=== PATIENT | male | born 1945 | race African-American/Black ===

== ENCOUNTER 2022-03-06 11:36 | Observation (INO) ==
[2022-03-06 12:08] LABS: Basophils % 0.5 % (0.0-0.8); Eosinophils # 0.2 10*3/uL (0.0-0.87); Eosinophils % 5.6 % (0.00-10.9); Hematocrit 37.5 VOL% (42.0-52.0); Hemoglobin 11.7 GM/DL (14.0-18.0); Immature Granulocytes % 0.2 %; Immature Granulocytes Absolute 0.01 #; Lymphocytes # 0.6 10*3/uL (1.4-4.0); Lymphocytes % 13.4 % (21.2-54.2); Mean Corpuscular HGB Conc 31.2 GM/DL (32-36); Mean Corpuscular Volume 89.1 FL (87-102); Mean Platelet Volume 10.7 FL (9.6-12.0); Monocytes # 0.4 10*3/uL (0.11-0.8); Monocytes % 8.5 % (1.7-12.7); Neutrophils % 71.8 % (38.7-73.9); Platelet Count 141 T/CUMM (130-400); Red Blood Count 4.21 MC/CUMM (3.8-5.5); Red Cell Distribution Width 13.4 % (9.3-17.3); White Blood Count 4.1 T/CUMM (4-12)
[2022-03-06 12:35] LABS: Albumin 3.4 G/DL (3.4-5.0); Bilirubin,Total 0.4 MG/DL (0.20-1.00); Osmolality,Calculated 299.8 MOS/KG (273-304); Potassium 4.5 MMOL/L (3.5-5.1); Total Protein 6.6 G/DL (6.4-8.2)
[2022-03-06] MEDS ORDERED: ASPIRIN 325 MG TABLET PO STA (12:46)
[2022-03-06 13:02] LABS: PT Patient Result 11.2 SECS (10.1-12.1)
[2022-03-06] MEDS ORDERED: FUROSEMIDE 40 MG/4 ML VIAL IV STA (13:15)
[2022-03-06] MEDS ORDERED: DOCUSATE SODIUM 100 MG CAPSULE PO PRN (13:50)
[2022-03-06] MEDS ORDERED: ACETAMINOPHEN 325 MG TABLET PO PRN (13:50)
[2022-03-06] MEDS ORDERED: DEXTROSE 10% 250 ML BAG IV PRN (13:50)
[2022-03-06] MEDS ORDERED: GLUCAGON 1 MG VIAL IM PRN (13:50)
[2022-03-06] MEDS ORDERED: ONDANSETRON 4 MG/2 ML VIAL IV PRN (13:50)
[2022-03-06 14:13] LABS: Risk Ratio 3.24; VLDL Cholesterol 31.8 MG/DL
[2022-03-06] MEDS ORDERED: FUROSEMIDE 40 MG/4 ML VIAL IV SCH (14:30)
[2022-03-06] MEDS ORDERED: hydrALAZINE 20 MG/1 ML VIAL IV PRN (14:33)
[2022-03-06] MEDS: INSULIN LISPRO 100 UNIT/ML SUBCUT SCH ×2 (17:31→20:54)
[2022-03-06] MEDS ORDERED: INFLUENZA VIRUS VACCINE 0.5 ML SYRINGE IM ONE (18:02)
[2022-03-06] MEDS: FUROSEMIDE 40 MG/4 ML VIAL IV SCH (18:18)
[2022-03-06 18:36] LABS: Bilirubin,Urine Negative (Negative); Blood, Urine Trace mg/dL (Negative); Glucose,Urine (UA) Negative (Negative); Ketones,Urine Negative (Negative); Nitrite,Urine Negative (Negative); Protein,Urine Negative (Negative); Urine Appearance Clear (Clear); Urine Color Yellow (Yellow); Urine Specific Gravity 1.015 (1.001-1.035); Urine Urobilinogen 0.2 eU/dL (<2.0); Urine pH 6.5 (4.5-8.0)
[2022-03-06 18:41] LABS: RBC,Urine 4 /HPF (0-4); Squamous Epithelial Cell,Urine Occasional /HPF (0-10)
[2022-03-06] MEDS ORDERED: MELATONIN 3 MG TABLET PO PRN (19:45)
[2022-03-07 05:54] LABS: Basophils % 0.4 % (0.0-0.8); Eosinophils # 0.3 10*3/uL (0.0-0.87); Eosinophils % 5.2 % (0.00-10.9); Hematocrit 38.5 VOL% (42.0-52.0); Hemoglobin 12.3 GM/DL (14.0-18.0); Immature Granulocytes % 0.2 %; Immature Granulocytes Absolute 0.01 #; Lymphocytes # 0.9 10*3/uL (1.4-4.0); Lymphocytes % 18.9 % (21.2-54.2); Mean Corpuscular HGB Conc 31.9 GM/DL (32-36); Mean Corpuscular Volume 87.3 FL (87-102); Mean Platelet Volume 11.5 FL (9.6-12.0); Monocytes # 0.5 10*3/uL (0.11-0.8); Monocytes % 10.2 % (1.7-12.7); Neutrophils % 65.1 % (38.7-73.9); Platelet Count 128 T/CUMM (130-400); Red Blood Count 4.41 MC/CUMM (3.8-5.5); Red Cell Distribution Width 13.4 % (9.3-17.3)
[2022-03-07 06:17] LABS: Calcium 9.4 MG/DL (8.5-10.1); Potassium 4.3 MMOL/L (3.5-5.1)
[2022-03-07] MEDS: RIVAROXABAN 10 MG TABLET PO SCH (08:39)
[2022-03-07] MEDS: PANTOPRAZOLE 40 MG TABLET PO SCH (08:39)
[2022-03-07] MEDS: FUROSEMIDE 40 MG/4 ML VIAL IV SCH ×2 (08:40→18:14)
[2022-03-07] MEDS: INSULIN LISPRO 100 UNIT/ML SUBCUT SCH ×4 (08:42→21:00)
[2022-03-07] MEDS: DILTIAZEM CD 240 MG CAPSULE PO SCH (11:41)
[2022-03-07] MEDS: hydrALAZINE 25 MG TABLET PO SCH ×2 (15:44→21:00)
[2022-03-07] MEDS: ISOSORBIDE MONONITRATE 30 MG TABLET PO SCH (15:44)
[2022-03-08 06:47] LABS: Calcium 9.3 MG/DL (8.5-10.1); Osmolality,Calculated 296.3 MOS/KG (273-304); Potassium 4.3 MMOL/L (3.5-5.1)
[2022-03-08] MEDS: FUROSEMIDE 40 MG/4 ML VIAL IV SCH (08:14)
[2022-03-08] MEDS: DILTIAZEM CD 240 MG CAPSULE PO SCH (08:14)
[2022-03-08] MEDS: hydrALAZINE 25 MG TABLET PO SCH (08:14)
[2022-03-08] MEDS: RIVAROXABAN 10 MG TABLET PO SCH (08:14)
[2022-03-08] MEDS: PANTOPRAZOLE 40 MG TABLET PO SCH (08:14)
[2022-03-08] MEDS: ISOSORBIDE MONONITRATE 30 MG TABLET PO SCH (08:14)
[2022-03-08] MEDS: INSULIN LISPRO 100 UNIT/ML SUBCUT SCH ×2 (08:24→12:43)
[2022-03-08] MEDS ORDERED: ISOSORBIDE MONONITRATE 30 MG TABLET PO SCH (11:00)
[2022-03-08 12:26] VITALS: BP 112/68
== END 2022-03-08 14:35 | disposition home or self-care (01) ==
LOC: SUATTDRO → N.EDINP 11:36 → N.ED 11:36 → SUATTDRO 13:50 → N.2W 17:00
PROVIDERS: ADMIT Internal Medicine; ATTEND Emergency Medicine

== ENCOUNTER 2022-06-18 19:46 | Inpatient (IN) ==
[2022-06-18 20:32] LABS: Basophils % 0.7 % (0.0-0.8); Eosinophils # 0.2 10*3/uL (0.0-0.87); Eosinophils % 3.1 % (0.00-10.9); Hematocrit 37.2 VOL% (42.0-52.0); Hemoglobin 12.2 GM/DL (14.0-18.0); Immature Granulocytes % 0.7 %; Immature Granulocytes Absolute 0.04 #; Lymphocytes # 0.9 10*3/uL (1.4-4.0); Lymphocytes % 16.7 % (21.2-54.2); Mean Corpuscular HGB Conc 32.8 GM/DL (32-36); Mean Corpuscular Volume 85.9 FL (87-102); Mean Platelet Volume 10.4 FL (9.6-12.0); Monocytes # 0.4 10*3/uL (0.11-0.8); Monocytes % 7.2 % (1.7-12.7); Neutrophils % 71.6 % (38.7-73.9); Platelet Count 168 T/CUMM (130-400); Red Blood Count 4.33 MC/CUMM (3.8-5.5); Red Cell Distribution Width 12.6 % (9.3-17.3); White Blood Count 5.4 T/CUMM (4-12)
[2022-06-18 20:46] LABS: Calcium 8.9 MG/DL (8.5-10.1); Osmolality,Calculated 290.4 MOS/KG (273-304); Partial Thromboplastin Time 25.1 SECS (23.7-32.9); Potassium 4.5 MMOL/L (3.5-5.1)
[2022-06-18 21:43] LABS: Bacteria,Urine Occasional /HPF (Few); Hyaline Casts,Urine 8 /LPF (0-3); Mucus,Urine Occasional /LPF (Occasional); RBC,Urine 2 /HPF (0-4); Squamous Epithelial Cell,Urine Occasional /HPF (0-10)
[2022-06-18 21:44] LABS: Bilirubin,Urine Negative (Negative); Blood, Urine Negative (Negative); Glucose,Urine (UA) Negative (Negative); Ketones,Urine Negative (Negative); Nitrite,Urine Negative (Negative); Protein,Urine 100 mg/dL (Negative); Urine Appearance Clear (Clear); Urine Color Yellow (Yellow); Urine Urobilinogen 0.2 eU/dL (<2.0); Urine pH 5.5 (4.5-8.0)
[2022-06-18] MEDS ORDERED: HYDROmorphone 1 MG/1 ML SYRINGE IV PRN (22:09)
[2022-06-18] MEDS ORDERED: ONDANSETRON 4 MG/2 ML VIAL IV PRN (22:09)
[2022-06-19] MEDS ORDERED: traMADol 50 MG TABLET PO PRN (08:34)
[2022-06-19] MEDS ORDERED: FUROSEMIDE 40 MG TABLET PO SCH (09:00)
[2022-06-19] MEDS ORDERED: ISOSORBIDE MONONITRATE 30 MG TABLET PO SCH (09:00)
[2022-06-19] MEDS ORDERED: hydrALAZINE 25 MG TABLET PO SCH (09:00)
[2022-06-19] MEDS ORDERED: TAMSULOSIN 0.4 MG CAPSULE PO SCH (09:00)
[2022-06-19] MEDS ORDERED: RIVAROXABAN 10 MG TABLET PO SCH (09:00)
[2022-06-19] MEDS ORDERED: DILTIAZEM CD 240 MG CAPSULE PO SCH (09:00)
[2022-06-19] MEDS: DORZOLAMIDE/TIMOLOL OPH SOLN 10 ML BOTTLE LEFT EYE SCH ×2 (10:13→21:45)
[2022-06-19] MEDS: BRIMONIDINE 0.1% OPH SOLN 5 ML BOTTLE LEFT EYE SCH ×2 (10:14→21:45)
[2022-06-19] MEDS: PANTOPRAZOLE 40 MG TABLET PO SCH (10:14)
[2022-06-19] MEDS: ROSUVASTATIN 10 MG TABLET PO SCH (20:14)
[2022-06-19] MEDS: TAMSULOSIN 0.4 MG CAPSULE PO SCH (20:14)
[2022-06-20 05:17] LABS: Basophils % 0.5 % (0.0-0.8); Eosinophils # 0.2 10*3/uL (0.0-0.87); Hemoglobin 11.8 GM/DL (14.0-18.0); Immature Granulocytes % 0.2 %; Immature Granulocytes Absolute 0.01 #; Lymphocytes # 1.2 10*3/uL (1.4-4.0); Lymphocytes % 28.1 % (21.2-54.2); Mean Corpuscular HGB Conc 32.8 GM/DL (32-36); Mean Corpuscular Volume 86.1 FL (87-102); Mean Platelet Volume 10.7 FL (9.6-12.0); Monocytes # 0.4 10*3/uL (0.11-0.8); Monocytes % 10.4 % (1.7-12.7); Neutrophils % 55.8 % (38.7-73.9); Platelet Count 141 T/CUMM (130-400); Red Blood Count 4.18 MC/CUMM (3.8-5.5); Red Cell Distribution Width 12.5 % (9.3-17.3); White Blood Count 4.2 T/CUMM (4-12)
[2022-06-20 05:47] LABS: Albumin 2.9 G/DL (3.4-5.0); Bilirubin,Total 0.4 MG/DL (0.20-1.00); Osmolality,Calculated 289.1 MOS/KG (273-304); Potassium 4.2 MMOL/L (3.5-5.1); Total Protein 6.2 G/DL (6.4-8.2)
[2022-06-20] MEDS: TAMSULOSIN 0.4 MG CAPSULE PO SCH ×2 (08:20→20:40)
[2022-06-20] MEDS: ASPIRIN EC 81 MG TABLET PO SCH (08:20)
[2022-06-20] MEDS: PANTOPRAZOLE 40 MG TABLET PO SCH (08:20)
[2022-06-20] MEDS: METOPROLOL TARTRATE 25 MG TABLET PO SCH ×2 (08:21→20:39)
[2022-06-20] MEDS: BRIMONIDINE 0.1% OPH SOLN 5 ML BOTTLE LEFT EYE SCH ×2 (10:12→20:39)
[2022-06-20] MEDS: DORZOLAMIDE/TIMOLOL OPH SOLN 10 ML BOTTLE LEFT EYE SCH ×2 (10:12→20:39)
[2022-06-20] MEDS: ROSUVASTATIN 10 MG TABLET PO SCH (20:40)
[2022-06-21 06:20] LABS: Calcium 9.2 MG/DL (8.5-10.1); Osmolality,Calculated 290.1 MOS/KG (273-304); Potassium 4.4 MMOL/L (3.5-5.1)
[2022-06-21] MEDS: ASPIRIN EC 81 MG TABLET PO SCH (08:22)
[2022-06-21] MEDS: PANTOPRAZOLE 40 MG TABLET PO SCH (08:22)
[2022-06-21] MEDS: FINASTERIDE 5 MG TABLET PO SCH (08:22)
[2022-06-21] MEDS: GABAPENTIN 600 MG TABLET PO SCH ×2 (08:22→20:11)
[2022-06-21] MEDS: ALFUZOSIN 10 MG TABLET PO SCH (08:22)
[2022-06-21] MEDS: METOPROLOL TARTRATE 25 MG TABLET PO SCH ×2 (08:23→20:11)
[2022-06-21] MEDS: GLIMEPIRIDE 2 MG TABLET PO SCH (08:23)
[2022-06-21] MEDS: SERTRALINE 100 MG TABLET PO SCH (08:23)
[2022-06-21] MEDS: BRIMONIDINE 0.1% OPH SOLN 5 ML BOTTLE LEFT EYE SCH ×2 (08:25→20:12)
[2022-06-21] MEDS: DORZOLAMIDE/TIMOLOL OPH SOLN 10 ML BOTTLE LEFT EYE SCH ×2 (08:25→20:12)
[2022-06-21] MEDS: FLUDROCORTISONE 0.1 MG TABLET PO SCH (09:41)
[2022-06-21] MEDS ORDERED: PRAZOSIN 1 MG CAPSULE PO SCH ×2 (12:14→21:00)
[2022-06-21] MEDS ORDERED: PRAZOSIN 1 MG CAPSULE PO ONE (13:21)
[2022-06-21] MEDS ORDERED: ROSUVASTATIN 10 MG TABLET PO SCH (21:00)
[2022-06-22] MEDS ORDERED: CHOLECALCIFEROL 1,000 UNIT TABLET PO SCH (09:00)
[2022-06-22] MEDS: FLUDROCORTISONE 0.1 MG TABLET PO SCH (09:25)
[2022-06-22] MEDS: SERTRALINE 100 MG TABLET PO SCH (09:25)
[2022-06-22] MEDS: FINASTERIDE 5 MG TABLET PO SCH (09:25)
[2022-06-22] MEDS: ASPIRIN EC 81 MG TABLET PO SCH (09:25)
[2022-06-22] MEDS: GABAPENTIN 600 MG TABLET PO SCH (09:25)
[2022-06-22] MEDS: PANTOPRAZOLE 40 MG TABLET PO SCH (09:25)
[2022-06-22] MEDS: METOPROLOL TARTRATE 25 MG TABLET PO SCH (09:25)
[2022-06-22] MEDS: GLIMEPIRIDE 2 MG TABLET PO SCH (09:26)
[2022-06-22] MEDS: ALFUZOSIN 10 MG TABLET PO SCH (09:26)
[2022-06-22] MEDS: DORZOLAMIDE/TIMOLOL OPH SOLN 10 ML BOTTLE LEFT EYE SCH (09:28)
[2022-06-22] MEDS: BRIMONIDINE 0.1% OPH SOLN 5 ML BOTTLE LEFT EYE SCH (09:29)
[2022-06-22 12:19] VITALS: BP 132/76
== END 2022-06-22 12:15 | disposition home health service (06) | DRG 312 ==
LOC: EDBD → EDUNIT# → N.EDINP 19:46 → N.ED 19:46 → N.TELES 06-19 07:50
PROVIDERS: ADMIT Family Medicine; ATTEND Family Medicine

== ENCOUNTER 2022-07-22 13:53 | Inpatient (IN) ==
[2022-07-22 14:41] LABS: Basophils % 0.3 % (0.0-0.8); Eosinophils % 0.3 % (0.00-10.9); Hematocrit 32.5 VOL% (42.0-52.0); Hemoglobin 10.3 GM/DL (14.0-18.0); Immature Granulocytes % 0.6 %; Immature Granulocytes Absolute 0.04 #; Lymphocytes # 0.3 10*3/uL (1.4-4.0); Lymphocytes % 5.2 % (21.2-54.2); Mean Corpuscular HGB Conc 31.7 GM/DL (32-36); Mean Corpuscular Volume 87.8 FL (87-102); Mean Platelet Volume 10.6 FL (9.6-12.0); Monocytes # 0.4 10*3/uL (0.11-0.8); Monocytes % 5.5 % (1.7-12.7); Neutrophils % 88.1 % (38.7-73.9); Platelet Count 157 T/CUMM (130-400); Red Cell Distribution Width 13.8 % (9.3-17.3); White Blood Count 6.59 T/CUMM (4-12)
[2022-07-22 14:53] LABS: PT Patient Result 10.9 SECS (10.1-12.1); Partial Thromboplastin Time 30.8 SECS (23.7-32.9)
[2022-07-22 15:21] LABS: Albumin 3.1 G/DL (3.4-5.0); Bilirubin,Total 0.6 MG/DL (0.20-1.00); Calcium 8.4 MG/DL (8.5-10.1); Potassium 3.9 MMOL/L (3.5-5.1); Total Protein 6.1 G/DL (6.4-8.2)
[2022-07-22] MEDS ORDERED: FUROSEMIDE 40 MG/4 ML VIAL IV STA (16:02)
[2022-07-22] MEDS ORDERED: GLUCAGON 1 MG VIAL IM PRN (16:06)
[2022-07-22] MEDS ORDERED: ACETAMINOPHEN 325 MG TABLET PO PRN (16:06)
[2022-07-22] MEDS ORDERED: ONDANSETRON 4 MG/2 ML VIAL IV PRN (16:06)
[2022-07-22] MEDS ORDERED: MAGNESIUM SULF RIDER 4 GM/100 ML PREMIX IV PRN (16:10)
[2022-07-22] MEDS ORDERED: MAGNESIUM SULF RIDER 2 GM/50 ML PREMIX IV PRN (16:10)
[2022-07-22] MEDS ORDERED: NITROGLYCERIN SL 0.4 MG TABLET SL PRN (16:12)
[2022-07-22] MEDS ORDERED: DEXTROSE 10% 250 ML BAG IV PRN (16:12)
[2022-07-22] MEDS ORDERED: SODIUM CHLORIDE 0.45% 1,000 ML IV SCH (16:30)
[2022-07-22] MEDS: ENOXAPARIN 30 MG/0.3 ML SYRINGE SUBCUT SCH (18:35)
[2022-07-22] MEDS ORDERED: ENOXAPARIN 60 MG/0.6 ML SYRINGE SUBCUT ONE (20:13)
[2022-07-22] MEDS ORDERED: hydrALAZINE 25 MG TABLET PO ONE (20:14)
[2022-07-22] MEDS: METOPROLOL TARTRATE 25 MG TABLET PO SCH (20:36)
[2022-07-22] MEDS: ROSUVASTATIN 10 MG TABLET PO SCH (20:36)
[2022-07-22] MEDS: GABAPENTIN 600 MG TABLET PO SCH (20:36)
[2022-07-22] MEDS: PRAZOSIN 1 MG CAPSULE PO SCH (20:37)
[2022-07-22] MEDS: DOCUSATE SODIUM 100 MG CAPSULE PO SCH (20:37)
[2022-07-22] MEDS: DORZOLAMIDE/TIMOLOL OPH SOLN 10 ML BOTTLE LEFT EYE SCH (21:22)
[2022-07-22] MEDS: INSULIN REGULAR 100 UNIT/ML SUBCUT SCH (21:23)
[2022-07-22] MEDS: BRIMONIDINE 0.1% OPH SOLN 5 ML BOTTLE LEFT EYE SCH (21:23)
[2022-07-23 07:29] LABS: Calcium 8.4 MG/DL (8.5-10.1); Osmolality,Calculated 297.7 MOS/KG (273-304); Potassium 3.4 MMOL/L (3.5-5.1)
[2022-07-23] MEDS: INSULIN REGULAR 100 UNIT/ML SUBCUT SCH ×4 (08:16→20:59)
[2022-07-23 08:33] LABS: Basophils % 0.4 % (0.0-0.8); Eosinophils # 0.1 10*3/uL (0.0-0.87); Eosinophils % 2.5 % (0.00-10.9); Hematocrit 30.3 VOL% (42.0-52.0); Hemoglobin 9.6 GM/DL (14.0-18.0); Immature Granulocytes % 0.5 %; Immature Granulocytes Absolute 0.03 #; Lymphocytes # 0.6 10*3/uL (1.4-4.0); Lymphocytes % 11.1 % (21.2-54.2); Mean Corpuscular HGB Conc 31.7 GM/DL (32-36); Mean Corpuscular Volume 87.1 FL (87-102); Mean Platelet Volume 10.6 FL (9.6-12.0); Monocytes # 0.5 10*3/uL (0.11-0.8); Monocytes % 9.1 % (1.7-12.7); Neutrophils % 76.4 % (38.7-73.9); Platelet Count 143 T/CUMM (130-400); Red Blood Count 3.48 MC/CUMM (3.8-5.5); Red Cell Distribution Width 13.8 % (9.3-17.3); White Blood Count 5.69 T/CUMM (4-12)
[2022-07-23] MEDS: GABAPENTIN 600 MG TABLET PO SCH ×2 (09:56→20:59)
[2022-07-23] MEDS: GLIMEPIRIDE 2 MG TABLET PO SCH (09:57)
[2022-07-23] MEDS: FLUDROCORTISONE 0.1 MG TABLET PO SCH (09:57)
[2022-07-23] MEDS: FINASTERIDE 5 MG TABLET PO SCH (09:57)
[2022-07-23] MEDS: DOCUSATE SODIUM 100 MG CAPSULE PO SCH ×2 (09:57→21:00)
[2022-07-23] MEDS: PANTOPRAZOLE 40 MG TABLET PO SCH (09:57)
[2022-07-23] MEDS: SERTRALINE 100 MG TABLET PO SCH (09:58)
[2022-07-23] MEDS: CHOLECALCIFEROL 1,000 UNIT TABLET PO SCH (09:58)
[2022-07-23] MEDS: ALFUZOSIN 10 MG TABLET PO SCH (09:58)
[2022-07-23] MEDS: METOPROLOL TARTRATE 25 MG TABLET PO SCH (09:58)
[2022-07-23] MEDS: BRIMONIDINE 0.1% OPH SOLN 5 ML BOTTLE LEFT EYE SCH ×2 (10:00→21:01)
[2022-07-23] MEDS: DORZOLAMIDE/TIMOLOL OPH SOLN 10 ML BOTTLE LEFT EYE SCH ×2 (10:01→21:00)
[2022-07-23] MEDS: ISOSORBIDE MONONITRATE 30 MG TABLET PO SCH (12:35)
[2022-07-23] MEDS: methylPREDNISolone SOD SUC 40 MG/1 ML VIAL IV SCH ×2 (12:37→21:00)
[2022-07-23] MEDS: FUROSEMIDE 40 MG/4 ML VIAL IV SCH (15:09)
[2022-07-23] MEDS: ENOXAPARIN 30 MG/0.3 ML SYRINGE SUBCUT SCH (16:16)
[2022-07-23] MEDS: ALBUTEROL/IPRATROPIUM 3 ML NEB RESP TX SCH (19:15)
[2022-07-23] MEDS: ROSUVASTATIN 10 MG TABLET PO SCH (20:59)
[2022-07-23] MEDS: PRAZOSIN 1 MG CAPSULE PO SCH (21:00)
[2022-07-24] MEDS: ALBUTEROL/IPRATROPIUM 3 ML NEB RESP TX SCH ×4 (00:10→21:47)
[2022-07-24 05:25] LABS: Basophils % 0.2 % (0.0-0.8); Hematocrit 29.6 VOL% (42.0-52.0); Hemoglobin 9.6 GM/DL (14.0-18.0); Immature Granulocytes % 0.6 %; Immature Granulocytes Absolute 0.04 #; Lymphocytes # 0.3 10*3/uL (1.4-4.0); Lymphocytes % 4.9 % (21.2-54.2); Mean Corpuscular HGB Conc 32.4 GM/DL (32-36); Mean Corpuscular Volume 86.3 FL (87-102); Mean Platelet Volume 10.5 FL (9.6-12.0); Monocytes # 0.3 10*3/uL (0.11-0.8); Monocytes % 4.7 % (1.7-12.7); Neutrophils % 89.6 % (38.7-73.9); Platelet Count 151 T/CUMM (130-400); Red Blood Count 3.43 MC/CUMM (3.8-5.5); Red Cell Distribution Width 13.3 % (9.3-17.3); White Blood Count 6.16 T/CUMM (4-12)
[2022-07-24] MEDS: methylPREDNISolone SOD SUC 40 MG/1 ML VIAL IV SCH ×3 (05:39→21:57)
[2022-07-24 05:50] LABS: Calcium 8.8 MG/DL (8.5-10.1); Potassium 3.5 MMOL/L (3.5-5.1)
[2022-07-24 06:02] LABS: Hypochromia Slight; Lymphocytes 8 % (20-55); Microcytosis Slight; Platelet Estimate Adequate; Total Cells Counted 100
[2022-07-24] MEDS: DOCUSATE SODIUM 100 MG CAPSULE PO SCH ×2 (08:39→21:57)
[2022-07-24] MEDS: FINASTERIDE 5 MG TABLET PO SCH (08:40)
[2022-07-24] MEDS: ISOSORBIDE MONONITRATE 30 MG TABLET PO SCH (08:40)
[2022-07-24] MEDS: FLUDROCORTISONE 0.1 MG TABLET PO SCH (08:41)
[2022-07-24] MEDS: PANTOPRAZOLE 40 MG TABLET PO SCH (08:42)
[2022-07-24] MEDS: GABAPENTIN 600 MG TABLET PO SCH ×2 (08:42→21:58)
[2022-07-24] MEDS: ASPIRIN EC 81 MG TABLET PO SCH (08:43)
[2022-07-24] MEDS: GLIMEPIRIDE 2 MG TABLET PO SCH (08:43)
[2022-07-24] MEDS: CHOLECALCIFEROL 1,000 UNIT TABLET PO SCH (08:43)
[2022-07-24] MEDS: SERTRALINE 100 MG TABLET PO SCH (08:45)
[2022-07-24] MEDS: ALFUZOSIN 10 MG TABLET PO SCH (08:45)
[2022-07-24] MEDS: DORZOLAMIDE/TIMOLOL OPH SOLN 10 ML BOTTLE LEFT EYE SCH ×2 (08:51→21:57)
[2022-07-24] MEDS: BRIMONIDINE 0.1% OPH SOLN 5 ML BOTTLE LEFT EYE SCH ×2 (08:51→21:57)
[2022-07-24] MEDS: INSULIN REGULAR 100 UNIT/ML SUBCUT SCH ×4 (08:54→22:12)
[2022-07-24] MEDS: FUROSEMIDE 40 MG/4 ML VIAL IV SCH ×2 (08:56→15:59)
[2022-07-24] MEDS: PIPERACILLIN/TAZOBACTAM 3,375 MG in SODIUM CHLORIDE 0.9% 100 ML IV SCH ×2 (10:14→17:24)
[2022-07-24] MEDS: ENOXAPARIN 30 MG/0.3 ML SYRINGE SUBCUT SCH (16:21)
[2022-07-24] MEDS: PRAZOSIN 1 MG CAPSULE PO SCH (21:58)
[2022-07-24] MEDS: ROSUVASTATIN 10 MG TABLET PO SCH (21:58)
[2022-07-25] MEDS ORDERED: amLODIPine 10 MG TABLET PO ONE (00:26)
[2022-07-25] MEDS: ALBUTEROL/IPRATROPIUM 3 ML NEB RESP TX SCH ×6 (02:04→23:22)
[2022-07-25] MEDS: PIPERACILLIN/TAZOBACTAM 3,375 MG in SODIUM CHLORIDE 0.9% 100 ML IV SCH ×2 (02:39→09:00)
[2022-07-25 06:12] LABS: Eosinophils % 0.1 % (0.00-10.9); Hematocrit 31.1 VOL% (42.0-52.0); Hemoglobin 10.2 GM/DL (14.0-18.0); Immature Granulocytes % 0.5 %; Immature Granulocytes Absolute 0.04 #; Lymphocytes # 0.4 10*3/uL (1.4-4.0); Mean Corpuscular HGB Conc 32.8 GM/DL (32-36); Mean Corpuscular Volume 86.4 FL (87-102); Mean Platelet Volume 10.7 FL (9.6-12.0); Monocytes # 0.5 10*3/uL (0.11-0.8); Monocytes % 6.8 % (1.7-12.7); Neutrophils % 87.6 % (38.7-73.9); Platelet Count 166 T/CUMM (130-400); Red Cell Distribution Width 13.6 % (9.3-17.3); White Blood Count 7.38 T/CUMM (4-12)
[2022-07-25 06:36] LABS: Albumin 2.7 G/DL (3.4-5.0); Bilirubin,Total 0.4 MG/DL (0.20-1.00); Calcium 9.1 MG/DL (8.5-10.1); Potassium 3.8 MMOL/L (3.5-5.1); Total Protein 6.4 G/DL (6.4-8.2)
[2022-07-25] MEDS: INSULIN REGULAR 100 UNIT/ML SUBCUT SCH ×4 (07:56→21:16)
[2022-07-25] MEDS: ISOSORBIDE MONONITRATE 30 MG TABLET PO SCH (08:55)
[2022-07-25] MEDS: FINASTERIDE 5 MG TABLET PO SCH (08:55)
[2022-07-25] MEDS: GABAPENTIN 600 MG TABLET PO SCH ×2 (08:55→21:10)
[2022-07-25] MEDS: IPRATROPIUM 500 MCG/2.5 ML NEB RESP TX SCH ×2 (08:56→10:55)
[2022-07-25] MEDS: FLUDROCORTISONE 0.1 MG TABLET PO SCH (08:56)
[2022-07-25] MEDS: ASPIRIN EC 81 MG TABLET PO SCH (08:56)
[2022-07-25] MEDS: PANTOPRAZOLE 40 MG TABLET PO SCH (08:56)
[2022-07-25] MEDS: CHOLECALCIFEROL 1,000 UNIT TABLET PO SCH (08:56)
[2022-07-25] MEDS: DOCUSATE SODIUM 100 MG CAPSULE PO SCH ×2 (08:56→21:10)
[2022-07-25] MEDS: LEVALBUTEROL 1.25 MG/3 ML NEB RESP TX SCH ×2 (08:56→10:55)
[2022-07-25] MEDS: GLIMEPIRIDE 2 MG TABLET PO SCH (08:56)
[2022-07-25] MEDS: SERTRALINE 100 MG TABLET PO SCH (08:57)
[2022-07-25] MEDS: ALFUZOSIN 10 MG TABLET PO SCH (08:57)
[2022-07-25] MEDS: FUROSEMIDE 40 MG/4 ML VIAL IV SCH ×2 (08:58→16:13)
[2022-07-25] MEDS: methylPREDNISolone SOD SUC 40 MG/1 ML VIAL IV SCH (08:58)
[2022-07-25] MEDS: DORZOLAMIDE/TIMOLOL OPH SOLN 10 ML BOTTLE LEFT EYE SCH ×2 (08:59→22:26)
[2022-07-25] MEDS: BRIMONIDINE 0.1% OPH SOLN 5 ML BOTTLE LEFT EYE SCH ×2 (08:59→22:25)
[2022-07-25] MEDS: FLUTICASONE/SALMETEROL 250-50 DISKUS 14 DOSE INH SCH ×2 (09:20→21:14)
[2022-07-25 09:40] LABS: Arterial Base Excess iSTAT 0 MMOL/L (-2.5-2.5); Arterial Bicarbonate iSTAT 26.3 MMOL/L (20-26); Arterial O2 Saturation iSTAT 95 % (95-100); Arterial PCO2 iSTAT 49 MM HG (35-48); Arterial PO2 iSTAT 81 MM HG (80-95); Arterial Total CO2 iSTAT 28 MMO/L (23-27); Arterial pH iSTAT 7.335 (7.35-7.45)
[2022-07-25] MEDS: CEFEPIME 1,000 MG in SODIUM CHLORIDE 0.9% 100 ML IV SCH ×2 (09:49→17:48)
[2022-07-25] MEDS: ENOXAPARIN 30 MG/0.3 ML SYRINGE SUBCUT SCH (16:13)
[2022-07-25] MEDS ORDERED: METOPROLOL TARTRATE 5 MG/5 ML VIAL IV PRN (18:02)
[2022-07-25] MEDS: ROSUVASTATIN 10 MG TABLET PO SCH (21:10)
[2022-07-25] MEDS: PRAZOSIN 1 MG CAPSULE PO SCH (21:10)
[2022-07-25] MEDS: BUDESONIDE/FORMOTEROL 160-4.5 INHALER 6 GM INH SCH (21:12)
[2022-07-26] MEDS: CEFEPIME 1,000 MG in SODIUM CHLORIDE 0.9% 100 ML IV SCH ×3 (02:15→17:27)
[2022-07-26] MEDS: ALBUTEROL/IPRATROPIUM 3 ML NEB RESP TX SCH ×6 (02:55→22:56)
[2022-07-26] MEDS ORDERED: METOPROLOL TARTRATE 25 MG TABLET PO ONE (03:15)
[2022-07-26] MEDS ORDERED: MAGNESIUM SULF RIDER 1 GM/100 ML PREMIX IV ONE (03:30)
[2022-07-26] MEDS: INSULIN REGULAR 100 UNIT/ML SUBCUT SCH ×4 (08:15→20:30)
[2022-07-26 08:19] LABS: Basophils % 0.3 % (0.0-0.8); Eosinophils # 0.2 10*3/uL (0.0-0.87); Eosinophils % 2.8 % (0.00-10.9); Hematocrit 32.8 VOL% (42.0-52.0); Hemoglobin 10.1 GM/DL (14.0-18.0); Immature Granulocytes % 0.9 %; Immature Granulocytes Absolute 0.07 #; Lymphocytes # 0.7 10*3/uL (1.4-4.0); Lymphocytes % 8.7 % (21.2-54.2); Mean Corpuscular HGB Conc 30.8 GM/DL (32-36); Mean Corpuscular Volume 87.9 FL (87-102); Monocytes # 0.8 10*3/uL (0.11-0.8); Monocytes % 10.6 % (1.7-12.7); Neutrophils % 76.7 % (38.7-73.9); Platelet Count 176 T/CUMM (130-400); Red Blood Count 3.73 MC/CUMM (3.8-5.5); Red Cell Distribution Width 13.7 % (9.3-17.3); White Blood Count 7.58 T/CUMM (4-12)
[2022-07-26] MEDS: ISOSORBIDE MONONITRATE 30 MG TABLET PO SCH (08:19)
[2022-07-26] MEDS: GABAPENTIN 600 MG TABLET PO SCH ×2 (08:19→20:30)
[2022-07-26] MEDS: FINASTERIDE 5 MG TABLET PO SCH (08:19)
[2022-07-26] MEDS: PANTOPRAZOLE 40 MG TABLET PO SCH (08:20)
[2022-07-26] MEDS: ALFUZOSIN 10 MG TABLET PO SCH (08:20)
[2022-07-26] MEDS: DOCUSATE SODIUM 100 MG CAPSULE PO SCH ×2 (08:20→20:30)
[2022-07-26] MEDS: FLUDROCORTISONE 0.1 MG TABLET PO SCH (08:20)
[2022-07-26] MEDS: GLIMEPIRIDE 2 MG TABLET PO SCH (08:20)
[2022-07-26] MEDS: SERTRALINE 100 MG TABLET PO SCH (08:20)
[2022-07-26] MEDS: FUROSEMIDE 40 MG/4 ML VIAL IV SCH ×2 (08:20→16:08)
[2022-07-26] MEDS: ASPIRIN EC 81 MG TABLET PO SCH (08:20)
[2022-07-26] MEDS: CHOLECALCIFEROL 1,000 UNIT TABLET PO SCH (08:20)
[2022-07-26] MEDS: BRIMONIDINE 0.1% OPH SOLN 5 ML BOTTLE LEFT EYE SCH ×2 (08:23→21:17)
[2022-07-26] MEDS: DORZOLAMIDE/TIMOLOL OPH SOLN 10 ML BOTTLE LEFT EYE SCH ×2 (08:23→21:17)
[2022-07-26] MEDS: FLUTICASONE/SALMETEROL 250-50 DISKUS 14 DOSE INH SCH ×2 (08:25→21:17)
[2022-07-26] MEDS: BUDESONIDE/FORMOTEROL 160-4.5 INHALER 6 GM INH SCH ×2 (08:25→21:17)
[2022-07-26 08:35] LABS: Calcium 8.4 MG/DL (8.5-10.1); Potassium 3.6 MMOL/L (3.5-5.1)
[2022-07-26] MEDS ORDERED: methylPREDNISolone SOD SUC 125 MG/2 ML VIAL IV ONE (09:47)
[2022-07-26] MEDS: SPIRONOLACTONE 25 MG TABLET PO SCH ×2 (10:08→20:31)
[2022-07-26 10:11] LABS: Bacteria,Urine Occasional /HPF (Few); Mucus,Urine Occasional /LPF (Occasional); RBC,Urine 2 /HPF (0-4); Urine Appearance Clear (Clear); Urine Color Yellow (Yellow); Urine Specific Gravity 1.015 (1.001-1.035); Urine pH 5.5 (4.5-8.0)
[2022-07-26 10:12] LABS: Bilirubin,Urine Negative (Negative); Blood, Urine Small mg/dL (Negative); Glucose,Urine (UA) Negative (Negative); Ketones,Urine Negative (Negative); Nitrite,Urine Negative (Negative); Protein,Urine 30 mg/dL (Negative); Urine Urobilinogen 0.2 eU/dL (<2.0)
[2022-07-26 10:25] LABS: Arterial Base Excess iSTAT 2 MMOL/L (-2.5-2.5); Arterial Bicarbonate iSTAT 28.5 MMOL/L (20-26); Arterial O2 Saturation iSTAT 78 % (95-100); Arterial PCO2 iSTAT 52 MM HG (35-48); Arterial PO2 iSTAT 46 MM HG (80-95); Arterial Total CO2 iSTAT 30 MMO/L (23-27); Arterial pH iSTAT 7.345 (7.35-7.45)
[2022-07-26 10:36] LABS: Arterial Base Excess iSTAT 2 MMOL/L (-2.5-2.5); Arterial Bicarbonate iSTAT 28.4 MMOL/L (20-26); Arterial O2 Saturation iSTAT 93 % (95-100); Arterial PCO2 iSTAT 55 MM HG (35-48); Arterial PO2 iSTAT 73 MM HG (80-95); Arterial Total CO2 iSTAT 30 MMO/L (23-27); Arterial pH iSTAT 7.322 (7.35-7.45)
[2022-07-26] MEDS: METOPROLOL SUCCINATE XL 25 MG TABLET PO SCH (12:20)
[2022-07-26] MEDS: ENOXAPARIN 30 MG/0.3 ML SYRINGE SUBCUT SCH (16:07)
[2022-07-26] MEDS: methylPREDNISolone SOD SUC 40 MG/1 ML VIAL IV SCH (17:26)
[2022-07-26] MEDS: ROSUVASTATIN 10 MG TABLET PO SCH (20:31)
[2022-07-26] MEDS: PRAZOSIN 1 MG CAPSULE PO SCH (20:31)
[2022-07-27] MEDS: methylPREDNISolone SOD SUC 40 MG/1 ML VIAL IV SCH ×3 (02:17→17:57)
[2022-07-27] MEDS: CEFEPIME 1,000 MG in SODIUM CHLORIDE 0.9% 100 ML IV SCH ×3 (02:17→17:57)
[2022-07-27] MEDS: ALBUTEROL/IPRATROPIUM 3 ML NEB RESP TX SCH ×6 (03:40→23:13)
[2022-07-27 04:15] LABS: Arterial Base Excess iSTAT 5 MMOL/L (-2.5-2.5); Arterial O2 Saturation iSTAT 91 % (95-100); Arterial PCO2 iSTAT 54 MM HG (35-48); Arterial PO2 iSTAT 64 MM HG (80-95); Arterial Total CO2 iSTAT 33 MMO/L (23-27); Arterial pH iSTAT 7.365 (7.35-7.45)
[2022-07-27 04:52] LABS: Hemoglobin 10.1 GM/DL (14.0-18.0); Immature Granulocytes % 1.2 %; Immature Granulocytes Absolute 0.08 #; Lymphocytes # 0.3 10*3/uL (1.4-4.0); Lymphocytes % 4.3 % (21.2-54.2); Mean Corpuscular HGB Conc 31.6 GM/DL (32-36); Mean Corpuscular Volume 86.5 FL (87-102); Mean Platelet Volume 9.9 FL (9.6-12.0); Monocytes # 0.4 10*3/uL (0.11-0.8); Monocytes % 5.8 % (1.7-12.7); Neutrophils % 88.7 % (38.7-73.9); Platelet Count 185 T/CUMM (130-400); Red Cell Distribution Width 13.7 % (9.3-17.3); White Blood Count 6.76 T/CUMM (4-12)
[2022-07-27 05:07] LABS: Calcium 8.7 MG/DL (8.5-10.1); Osmolality,Calculated 306.6 MOS/KG (273-304); Potassium 3.7 MMOL/L (3.5-5.1)
[2022-07-27 05:12] LABS: Hypochromia Slight; Lymphocytes 7 % (20-55); Microcytosis Slight; Platelet Estimate Adequate; Total Cells Counted 100
[2022-07-27] MEDS: METOPROLOL SUCCINATE XL 25 MG TABLET PO SCH ×2 (06:03→08:06)
[2022-07-27] MEDS: ALFUZOSIN 10 MG TABLET PO SCH (08:30)
[2022-07-27] MEDS: INSULIN REGULAR 100 UNIT/ML SUBCUT SCH ×4 (08:30→20:54)
[2022-07-27] MEDS: FUROSEMIDE 40 MG/4 ML VIAL IV SCH ×2 (08:30→15:45)
[2022-07-27] MEDS: ASPIRIN EC 81 MG TABLET PO SCH (08:31)
[2022-07-27] MEDS: GABAPENTIN 600 MG TABLET PO SCH ×2 (08:31→20:50)
[2022-07-27] MEDS: DOCUSATE SODIUM 100 MG CAPSULE PO SCH ×2 (08:31→20:50)
[2022-07-27] MEDS: ISOSORBIDE MONONITRATE 30 MG TABLET PO SCH (08:31)
[2022-07-27] MEDS: FLUDROCORTISONE 0.1 MG TABLET PO SCH (08:31)
[2022-07-27] MEDS: GLIMEPIRIDE 2 MG TABLET PO SCH (08:31)
[2022-07-27] MEDS: BUDESONIDE/FORMOTEROL 160-4.5 INHALER 6 GM INH SCH (08:32)
[2022-07-27] MEDS: FLUTICASONE/SALMETEROL 250-50 DISKUS 14 DOSE INH SCH ×2 (08:32→20:50)
[2022-07-27] MEDS: BRIMONIDINE 0.1% OPH SOLN 5 ML BOTTLE LEFT EYE SCH ×2 (08:32→20:52)
[2022-07-27] MEDS: SPIRONOLACTONE 25 MG TABLET PO SCH ×2 (08:32→20:50)
[2022-07-27] MEDS: PANTOPRAZOLE 40 MG TABLET PO SCH (08:32)
[2022-07-27] MEDS: DORZOLAMIDE/TIMOLOL OPH SOLN 10 ML BOTTLE LEFT EYE SCH ×2 (08:32→20:52)
[2022-07-27] MEDS: FINASTERIDE 5 MG TABLET PO SCH (08:32)
[2022-07-27] MEDS: SERTRALINE 100 MG TABLET PO SCH (08:32)
[2022-07-27] MEDS: CHOLECALCIFEROL 1,000 UNIT TABLET PO SCH (08:35)
[2022-07-27] MEDS: ENOXAPARIN 30 MG/0.3 ML SYRINGE SUBCUT SCH (17:57)
[2022-07-27] MEDS: PRAZOSIN 1 MG CAPSULE PO SCH (20:50)
[2022-07-27] MEDS: ROSUVASTATIN 10 MG TABLET PO SCH (20:51)
[2022-07-28] MEDS: BUDESONIDE/FORMOTEROL 160-4.5 INHALER 6 GM INH SCH ×3 (01:49→20:19)
[2022-07-28] MEDS: CEFEPIME 1,000 MG in SODIUM CHLORIDE 0.9% 100 ML IV SCH ×3 (01:56→17:03)
[2022-07-28] MEDS: methylPREDNISolone SOD SUC 40 MG/1 ML VIAL IV SCH ×4 (01:56→22:12)
[2022-07-28] MEDS: ALBUTEROL/IPRATROPIUM 3 ML NEB RESP TX SCH ×6 (03:15→22:35)
[2022-07-28 04:19] LABS: Basophils % 0.1 % (0.0-0.8); Eosinophils % 0.4 % (0.00-10.9); Hematocrit 31.9 VOL% (42.0-52.0); Hemoglobin 10.2 GM/DL (14.0-18.0); Immature Granulocytes % 0.7 %; Immature Granulocytes Absolute 0.07 #; Lymphocytes # 0.7 10*3/uL (1.4-4.0); Lymphocytes % 7.7 % (21.2-54.2); Mean Platelet Volume 10.3 FL (9.6-12.0); Monocytes # 0.6 10*3/uL (0.11-0.8); Neutrophils % 85.1 % (38.7-73.9); Platelet Count 210 T/CUMM (130-400); Red Blood Count 3.71 MC/CUMM (3.8-5.5); Red Cell Distribution Width 13.5 % (9.3-17.3); White Blood Count 9.43 T/CUMM (4-12)
[2022-07-28 04:45] LABS: Calcium 8.7 MG/DL (8.5-10.1); Osmolality,Calculated 301.4 MOS/KG (273-304); Potassium 3.5 MMOL/L (3.5-5.1)
[2022-07-28] MEDS: INSULIN REGULAR 100 UNIT/ML SUBCUT SCH ×4 (08:56→20:23)
[2022-07-28] MEDS: GLIMEPIRIDE 2 MG TABLET PO SCH (09:46)
[2022-07-28] MEDS: ALFUZOSIN 10 MG TABLET PO SCH (09:46)
[2022-07-28] MEDS: FLUDROCORTISONE 0.1 MG TABLET PO SCH (09:47)
[2022-07-28] MEDS: METOPROLOL SUCCINATE XL 25 MG TABLET PO SCH (09:47)
[2022-07-28] MEDS: FINASTERIDE 5 MG TABLET PO SCH (09:47)
[2022-07-28] MEDS: PANTOPRAZOLE 40 MG TABLET PO SCH (09:49)
[2022-07-28] MEDS: SERTRALINE 100 MG TABLET PO SCH (09:49)
[2022-07-28] MEDS: SPIRONOLACTONE 25 MG TABLET PO SCH ×2 (09:50→20:20)
[2022-07-28] MEDS: ISOSORBIDE MONONITRATE 30 MG TABLET PO SCH (09:50)
[2022-07-28] MEDS: GABAPENTIN 600 MG TABLET PO SCH ×2 (09:50→20:21)
[2022-07-28] MEDS: CHOLECALCIFEROL 1,000 UNIT TABLET PO SCH (09:51)
[2022-07-28] MEDS: FLUTICASONE/SALMETEROL 250-50 DISKUS 14 DOSE INH SCH ×2 (09:51→20:19)
[2022-07-28] MEDS: DOCUSATE SODIUM 100 MG CAPSULE PO SCH ×2 (09:51→20:20)
[2022-07-28] MEDS: ASPIRIN EC 81 MG TABLET PO SCH (09:51)
[2022-07-28] MEDS: FUROSEMIDE 40 MG/4 ML VIAL IV SCH ×2 (09:52→16:58)
[2022-07-28] MEDS: BRIMONIDINE 0.1% OPH SOLN 5 ML BOTTLE LEFT EYE SCH ×2 (09:53→20:22)
[2022-07-28] MEDS: DORZOLAMIDE/TIMOLOL OPH SOLN 10 ML BOTTLE LEFT EYE SCH ×2 (09:53→20:22)
[2022-07-28] MEDS: POTASSIUM CHLORIDE 10 MEQ TABLET PO SCH ×2 (10:58→20:21)
[2022-07-28] MEDS: ENOXAPARIN 30 MG/0.3 ML SYRINGE SUBCUT SCH (17:03)
[2022-07-28] MEDS: ROSUVASTATIN 10 MG TABLET PO SCH (20:20)
[2022-07-28] MEDS: PRAZOSIN 1 MG CAPSULE PO SCH (20:21)
[2022-07-29] MEDS: CEFEPIME 1,000 MG in SODIUM CHLORIDE 0.9% 100 ML IV SCH ×3 (01:09→19:41)
[2022-07-29] MEDS: ALBUTEROL/IPRATROPIUM 3 ML NEB RESP TX SCH ×6 (02:10→22:55)
[2022-07-29 04:21] LABS: Basophils % 0.1 % (0.0-0.8); Eosinophils # 0.1 10*3/uL (0.0-0.87); Eosinophils % 0.8 % (0.00-10.9); Hematocrit 33.2 VOL% (42.0-52.0); Hemoglobin 10.6 GM/DL (14.0-18.0); Immature Granulocytes % 0.8 %; Immature Granulocytes Absolute 0.07 #; Lymphocytes # 0.6 10*3/uL (1.4-4.0); Lymphocytes % 6.5 % (21.2-54.2); Mean Corpuscular HGB Conc 31.9 GM/DL (32-36); Mean Corpuscular Volume 85.6 FL (87-102); Mean Platelet Volume 10.3 FL (9.6-12.0); Monocytes # 0.4 10*3/uL (0.11-0.8); Monocytes % 4.6 % (1.7-12.7); Neutrophils % 87.2 % (38.7-73.9); Platelet Count 207 T/CUMM (130-400); Red Blood Count 3.88 MC/CUMM (3.8-5.5); Red Cell Distribution Width 13.4 % (9.3-17.3); White Blood Count 8.61 T/CUMM (4-12)
[2022-07-29 04:41] LABS: Calcium 8.5 MG/DL (8.5-10.1); Osmolality,Calculated 300.4 MOS/KG (273-304); Potassium 4.2 MMOL/L (3.5-5.1)
[2022-07-29] MEDS ORDERED: NON-FORMULARY MEDICATION (Dulaglutide [Trulicity] 1.5 mg/0.5 mL pen injector) SUBCUT SCH (09:00)
[2022-07-29] MEDS: INSULIN REGULAR 100 UNIT/ML SUBCUT SCH ×4 (09:04→21:40)
[2022-07-29] MEDS: DOCUSATE SODIUM 100 MG CAPSULE PO SCH ×2 (09:46→21:34)
[2022-07-29] MEDS: GABAPENTIN 600 MG TABLET PO SCH ×2 (09:46→21:34)
[2022-07-29] MEDS: ASCORBIC ACID 500 MG TABLET PO SCH ×2 (09:47→21:34)
[2022-07-29] MEDS: ISOSORBIDE MONONITRATE 30 MG TABLET PO SCH (09:47)
[2022-07-29] MEDS: SPIRONOLACTONE 25 MG TABLET PO SCH ×2 (09:47→21:34)
[2022-07-29] MEDS: METOPROLOL SUCCINATE XL 25 MG TABLET PO SCH (09:47)
[2022-07-29] MEDS: ASPIRIN EC 81 MG TABLET PO SCH (09:48)
[2022-07-29] MEDS: GLIMEPIRIDE 2 MG TABLET PO SCH (09:48)
[2022-07-29] MEDS: PANTOPRAZOLE 40 MG TABLET PO SCH (09:48)
[2022-07-29] MEDS: POTASSIUM CHLORIDE 10 MEQ TABLET PO SCH ×2 (09:49→21:34)
[2022-07-29] MEDS: FINASTERIDE 5 MG TABLET PO SCH (09:49)
[2022-07-29] MEDS: FLUDROCORTISONE 0.1 MG TABLET PO SCH (09:49)
[2022-07-29] MEDS: ALFUZOSIN 10 MG TABLET PO SCH (09:49)
[2022-07-29] MEDS: CHOLECALCIFEROL 1,000 UNIT TABLET PO SCH (09:49)
[2022-07-29] MEDS: SERTRALINE 100 MG TABLET PO SCH (09:49)
[2022-07-29] MEDS: FLUTICASONE/SALMETEROL 250-50 DISKUS 14 DOSE INH SCH ×2 (09:50→21:33)
[2022-07-29] MEDS: BUDESONIDE/FORMOTEROL 160-4.5 INHALER 6 GM INH SCH ×2 (09:50→21:34)
[2022-07-29] MEDS: DORZOLAMIDE/TIMOLOL OPH SOLN 10 ML BOTTLE LEFT EYE SCH ×2 (09:51→21:33)
[2022-07-29] MEDS: BRIMONIDINE 0.1% OPH SOLN 5 ML BOTTLE LEFT EYE SCH ×2 (09:51→21:33)
[2022-07-29] MEDS: FUROSEMIDE 40 MG/4 ML VIAL IV SCH ×2 (10:04→18:12)
[2022-07-29] MEDS: PRAZOSIN 1 MG CAPSULE PO SCH ×2 (13:02→21:34)
[2022-07-29] MEDS: ENOXAPARIN 30 MG/0.3 ML SYRINGE SUBCUT SCH (17:45)
[2022-07-29] MEDS: ROSUVASTATIN 10 MG TABLET PO SCH (21:34)
[2022-07-30] MEDS: CEFEPIME 1,000 MG in SODIUM CHLORIDE 0.9% 100 ML IV SCH ×2 (01:27→10:12)
[2022-07-30] MEDS: ALBUTEROL/IPRATROPIUM 3 ML NEB RESP TX SCH ×5 (02:40→20:33)
[2022-07-30 04:01] LABS: Basophils % 0.1 % (0.0-0.8); Eosinophils # 0.4 10*3/uL (0.0-0.87); Eosinophils % 5.2 % (0.00-10.9); Hematocrit 34.7 VOL% (42.0-52.0); Immature Granulocytes Absolute 0.07 #; Lymphocytes # 0.8 10*3/uL (1.4-4.0); Lymphocytes % 10.9 % (21.2-54.2); Mean Corpuscular HGB Conc 31.7 GM/DL (32-36); Mean Corpuscular Volume 87.6 FL (87-102); Mean Platelet Volume 10.1 FL (9.6-12.0); Monocytes # 0.7 10*3/uL (0.11-0.8); Monocytes % 9.1 % (1.7-12.7); Neutrophils % 73.7 % (38.7-73.9); Platelet Count 202 T/CUMM (130-400); Red Blood Count 3.96 MC/CUMM (3.8-5.5); Red Cell Distribution Width 13.5 % (9.3-17.3); White Blood Count 7.33 T/CUMM (4-12)
[2022-07-30 04:22] LABS: Calcium 8.4 MG/DL (8.5-10.1); Osmolality,Calculated 304.8 MOS/KG (273-304); Potassium 4.2 MMOL/L (3.5-5.1)
[2022-07-30] MEDS: INSULIN REGULAR 100 UNIT/ML SUBCUT SCH ×4 (09:25→21:28)
[2022-07-30] MEDS: FUROSEMIDE 40 MG/4 ML VIAL IV SCH (10:11)
[2022-07-30] MEDS: ALFUZOSIN 10 MG TABLET PO SCH (10:12)
[2022-07-30] MEDS: ASCORBIC ACID 500 MG TABLET PO SCH ×2 (10:13→21:27)
[2022-07-30] MEDS: ISOSORBIDE MONONITRATE 30 MG TABLET PO SCH (10:13)
[2022-07-30] MEDS: POTASSIUM CHLORIDE 10 MEQ TABLET PO SCH ×2 (10:13→21:27)
[2022-07-30] MEDS: GABAPENTIN 600 MG TABLET PO SCH ×2 (10:13→21:27)
[2022-07-30] MEDS: PRAZOSIN 1 MG CAPSULE PO SCH ×2 (10:14→21:27)
[2022-07-30] MEDS: METOPROLOL SUCCINATE XL 25 MG TABLET PO SCH (10:14)
[2022-07-30] MEDS: SERTRALINE 100 MG TABLET PO SCH (10:14)
[2022-07-30] MEDS: SPIRONOLACTONE 25 MG TABLET PO SCH ×2 (10:14→21:27)
[2022-07-30] MEDS: GLIMEPIRIDE 2 MG TABLET PO SCH (10:14)
[2022-07-30] MEDS: PANTOPRAZOLE 40 MG TABLET PO SCH (10:14)
[2022-07-30] MEDS: DOCUSATE SODIUM 100 MG CAPSULE PO SCH ×2 (10:15→21:27)
[2022-07-30] MEDS: predniSONE 20 MG TABLET PO SCH (10:15)
[2022-07-30] MEDS: ASPIRIN EC 81 MG TABLET PO SCH (10:15)
[2022-07-30] MEDS: CHOLECALCIFEROL 1,000 UNIT TABLET PO SCH (10:17)
[2022-07-30] MEDS: FINASTERIDE 5 MG TABLET PO SCH (10:21)
[2022-07-30] MEDS: FLUDROCORTISONE 0.1 MG TABLET PO SCH (10:22)
[2022-07-30] MEDS: FLUTICASONE/SALMETEROL 250-50 DISKUS 14 DOSE INH SCH ×2 (10:23→21:26)
[2022-07-30] MEDS: BRIMONIDINE 0.1% OPH SOLN 5 ML BOTTLE LEFT EYE SCH ×2 (10:23→21:26)
[2022-07-30] MEDS: DORZOLAMIDE/TIMOLOL OPH SOLN 10 ML BOTTLE LEFT EYE SCH ×2 (10:23→21:26)
[2022-07-30] MEDS: BUDESONIDE/FORMOTEROL 160-4.5 INHALER 6 GM INH SCH ×2 (10:24→21:26)
[2022-07-30] MEDS: MEROPENEM 500 MG in SODIUM CHLORIDE 0.9% 100 ML IV SCH ×2 (11:26→18:33)
[2022-07-30] MEDS: ENOXAPARIN 30 MG/0.3 ML SYRINGE SUBCUT SCH (18:14)
[2022-07-30] MEDS: FUROSEMIDE 40 MG TABLET PO SCH (18:15)
[2022-07-30] MEDS: ROSUVASTATIN 10 MG TABLET PO SCH (21:27)
[2022-07-31] MEDS: ALBUTEROL/IPRATROPIUM 3 ML NEB RESP TX SCH ×6 (00:11→20:00)
[2022-07-31] MEDS: MEROPENEM 500 MG in SODIUM CHLORIDE 0.9% 100 ML IV SCH ×3 (03:33→21:14)
[2022-07-31 09:04] LABS: Basophils % 0.2 % (0.0-0.8); Eosinophils # 0.3 10*3/uL (0.0-0.87); Eosinophils % 3.3 % (0.00-10.9); Hematocrit 37.8 VOL% (42.0-52.0); Hemoglobin 11.7 GM/DL (14.0-18.0); Lymphocytes # 0.6 10*3/uL (1.4-4.0); Lymphocytes % 6.5 % (21.2-54.2); Mean Corpuscular Volume 88.9 FL (87-102); Mean Platelet Volume 9.6 FL (9.6-12.0); Monocytes # 0.7 10*3/uL (0.11-0.8); Monocytes % 7.3 % (1.7-12.7); Neutrophils % 81.7 % (38.7-73.9); Platelet Count 209 T/CUMM (130-400); Red Blood Count 4.25 MC/CUMM (3.8-5.5); Red Cell Distribution Width 13.7 % (9.3-17.3); White Blood Count 9.57 T/CUMM (4-12)
[2022-07-31 09:19] LABS: Albumin 2.5 G/DL (3.4-5.0); Bilirubin,Total 0.5 MG/DL (0.20-1.00); Calcium 8.8 MG/DL (8.5-10.1); Osmolality,Calculated 306.8 MOS/KG (273-304); Total Protein 6.7 G/DL (6.4-8.2)
[2022-07-31] MEDS: ALFUZOSIN 10 MG TABLET PO SCH (11:02)
[2022-07-31] MEDS: FUROSEMIDE 40 MG TABLET PO SCH ×2 (11:02→16:07)
[2022-07-31] MEDS: FLUDROCORTISONE 0.1 MG TABLET PO SCH (11:02)
[2022-07-31] MEDS: FINASTERIDE 5 MG TABLET PO SCH (11:02)
[2022-07-31] MEDS: DOCUSATE SODIUM 100 MG CAPSULE PO SCH ×2 (11:03→21:15)
[2022-07-31] MEDS: POTASSIUM CHLORIDE 10 MEQ TABLET PO SCH ×2 (11:03→21:15)
[2022-07-31] MEDS: SERTRALINE 100 MG TABLET PO SCH (11:03)
[2022-07-31] MEDS: GABAPENTIN 600 MG TABLET PO SCH ×2 (11:03→21:15)
[2022-07-31] MEDS: ASPIRIN EC 81 MG TABLET PO SCH (11:03)
[2022-07-31] MEDS: CHOLECALCIFEROL 1,000 UNIT TABLET PO SCH (11:04)
[2022-07-31] MEDS: predniSONE 20 MG TABLET PO SCH (11:04)
[2022-07-31] MEDS: METOPROLOL SUCCINATE XL 25 MG TABLET PO SCH (11:04)
[2022-07-31] MEDS: PANTOPRAZOLE 40 MG TABLET PO SCH (11:04)
[2022-07-31] MEDS: SPIRONOLACTONE 25 MG TABLET PO SCH ×2 (11:04→21:15)
[2022-07-31] MEDS: ISOSORBIDE MONONITRATE 30 MG TABLET PO SCH (11:04)
[2022-07-31] MEDS: PRAZOSIN 1 MG CAPSULE PO SCH ×2 (11:04→21:15)
[2022-07-31] MEDS: ASCORBIC ACID 500 MG TABLET PO SCH ×2 (11:18→21:15)
[2022-07-31] MEDS: GLIMEPIRIDE 2 MG TABLET PO SCH (11:19)
[2022-07-31] MEDS: INSULIN REGULAR 100 UNIT/ML SUBCUT SCH ×4 (11:53→23:29)
[2022-07-31] MEDS: BUDESONIDE/FORMOTEROL 160-4.5 INHALER 6 GM INH SCH ×2 (11:54→21:15)
[2022-07-31] MEDS: DORZOLAMIDE/TIMOLOL OPH SOLN 10 ML BOTTLE LEFT EYE SCH ×2 (11:54→21:16)
[2022-07-31] MEDS: BRIMONIDINE 0.1% OPH SOLN 5 ML BOTTLE LEFT EYE SCH ×2 (11:54→21:16)
[2022-07-31] MEDS: FLUTICASONE/SALMETEROL 250-50 DISKUS 14 DOSE INH SCH ×2 (11:54→21:15)
[2022-07-31] MEDS: ENOXAPARIN 30 MG/0.3 ML SYRINGE SUBCUT SCH (17:36)
[2022-07-31] MEDS: ROSUVASTATIN 10 MG TABLET PO SCH (21:16)
[2022-08-01] MEDS: ALBUTEROL/IPRATROPIUM 3 ML NEB RESP TX SCH ×5 (00:20→14:13)
[2022-08-01] MEDS: MEROPENEM 500 MG in SODIUM CHLORIDE 0.9% 100 ML IV SCH ×2 (06:06→13:13)
[2022-08-01] MEDS: INSULIN REGULAR 100 UNIT/ML SUBCUT SCH ×2 (09:24→12:31)
[2022-08-01] MEDS: DOCUSATE SODIUM 100 MG CAPSULE PO SCH (09:25)
[2022-08-01] MEDS: PANTOPRAZOLE 40 MG TABLET PO SCH (09:25)
[2022-08-01] MEDS: ASCORBIC ACID 500 MG TABLET PO SCH (09:25)
[2022-08-01] MEDS: ISOSORBIDE MONONITRATE 30 MG TABLET PO SCH (09:25)
[2022-08-01] MEDS: FUROSEMIDE 40 MG TABLET PO SCH (09:25)
[2022-08-01] MEDS: FINASTERIDE 5 MG TABLET PO SCH (09:25)
[2022-08-01] MEDS: ASPIRIN EC 81 MG TABLET PO SCH (09:25)
[2022-08-01] MEDS: PRAZOSIN 1 MG CAPSULE PO SCH (09:25)
[2022-08-01] MEDS: METOPROLOL SUCCINATE XL 25 MG TABLET PO SCH (09:25)
[2022-08-01] MEDS: POTASSIUM CHLORIDE 10 MEQ TABLET PO SCH (09:25)
[2022-08-01] MEDS: ALFUZOSIN 10 MG TABLET PO SCH (09:26)
[2022-08-01] MEDS: CHOLECALCIFEROL 1,000 UNIT TABLET PO SCH (09:26)
[2022-08-01] MEDS: GABAPENTIN 600 MG TABLET PO SCH (09:26)
[2022-08-01] MEDS: FLUDROCORTISONE 0.1 MG TABLET PO SCH (09:26)
[2022-08-01] MEDS: predniSONE 20 MG TABLET PO SCH (09:26)
[2022-08-01] MEDS: GLIMEPIRIDE 2 MG TABLET PO SCH (09:26)
[2022-08-01] MEDS: SERTRALINE 100 MG TABLET PO SCH (09:26)
[2022-08-01] MEDS: SPIRONOLACTONE 25 MG TABLET PO SCH (09:26)
[2022-08-01] MEDS: FLUTICASONE/SALMETEROL 250-50 DISKUS 14 DOSE INH SCH (10:36)
[2022-08-01] MEDS: BRIMONIDINE 0.1% OPH SOLN 5 ML BOTTLE LEFT EYE SCH (10:36)
[2022-08-01] MEDS: DORZOLAMIDE/TIMOLOL OPH SOLN 10 ML BOTTLE LEFT EYE SCH (10:36)
[2022-08-01] MEDS: BUDESONIDE/FORMOTEROL 160-4.5 INHALER 6 GM INH SCH (10:36)
[2022-08-01 13:30] VITALS: BP 151/73
== END 2022-08-01 13:53 | DRG 291 ==
LOC: N.ED 13:53 → N.EDINP 13:53 → N.2W 16:54 → SUATTDRO 07-25 08:43 → N.ICU 07-26 09:07 → N.TELES 07-27 15:50
PROVIDERS: ADMIT Family Medicine; ATTEND Family Medicine